=== PATIENT | male | born 1970 | race Two or more races ===

== ENCOUNTER 2022-02-17 11:19 | Emergency (ER) | payer OTHER ==
[~2022-02-17] VITALS: Ht 172.7 cm; Wt 106.2 kg
[2022-02-17 11:39] VITALS: BP 163/103
[2022-02-17 11:57] LABS: Urine WBC None Seen /hpf (0 - 3)
[2022-02-17 12:15] LABS: Basophils # (auto) 0 10 ^3/uL (0-0.2); Basophils % (auto) 0.2 % (0.0-2.0); Eosinophils # (auto) 0 10 ^3/uL (0-0.8); Eosinophils % (auto) 0.5 % (0.0-7.0); Hematocrit 45.4 % (41.0-53.0); Hemoglobin 14.9 g/dL (13.5-17.5); Lymphocytes # (auto) 1.3 10 ^3/uL (0.4-5.4); Lymphocytes % (auto) 14.1 % (10.0-50.0); Mean Corpuscular Hemoglobin 28.1 pg (28.0-32.0); Mean Corpuscular Hgb Conc. 32.8 g/dL (32.0-36.0); Mean Corpuscular Volume 85.8 fL (80.0-100.0); Monocytes # (auto) 0.5 10 ^3/uL (0-1.3); Monocytes % (auto) 5.7 % (0.0-12.0); Neutrophils # (auto) 7.1 10 ^3/uL (1.6-8.6); Neutrophils % (auto) 79.5 % (37.0-80.0); Nucleated Red Blood Cells % 0.1 %; Red Blood Cells 5.29 10^6/uL (4.5-5.90); Red Cell Distribution Width 13.4 % (11.8-14.3)
[2022-02-17 12:17] LABS: Urine Bacteria NONE SEEN /hpf (None Seen); Urine Blood Negative /uL (Negative); Urine Mucus FEW (None Seen); Urine Specific Gravity 1.024 (1.001-1.035)
[2022-02-17 12:24] LABS: Albumin 4.1 g/dL (3.4-5.0); BUN/Creatinine Ratio 15.9; Calcium 9.6 mg/dL (8.5-10.1); Potassium 4.4 mmol/L (3.5-5.1)
[2022-02-17 12:27] LABS: Bilirubin, Total 0.5 mg/dL (0.2-1.0); Total Protein 7.4 g/dL (6.4-8.2)
[2022-02-17] MEDS ORDERED: DONNATAL 5ml ORAL Elix (BELLADONNA ALK-PHENOBARB) PO ONE (13:00)
[2022-02-17] MEDS ORDERED: ALUM & MAG HYDROX-SIMETH LIQ(MAALOX) 30 ML PO ONE (13:00)
[2022-02-17] MEDS ORDERED: DICYCLOMINE HCL (10MG/ML) 2 ML AMPULE IM ONE (13:00)
[2022-02-17] MEDS ORDERED: LIDOCAINE VISCOUS 2% 15ML UD PO ONE (13:00)
== END 2022-02-17 14:36 | disposition home or self-care (01) ==
LOC: ER 11:19
DX: K80.20 Calculus of gallbladder without cholecystitis without obstruction (principal); Z88.1 Allergy status to other antibiotic agents
CPT/HCPCS: 36415; 76705; 80053; 81001; 83690; 84484; 85025; 93005; 96372; 99285; J0500